=== PATIENT | female | born 1975 | race Caucasian/White ===

== ENCOUNTER 2017-01-20 13:10 | Observation (INO) | payer BC ==
[~2017-01-20] VITALS: Ht 167.6 cm; Wt 78.2 kg
[~2017-01-20 13:10] MED LIST: ASPIRIN PO; BENTYL20 MG PO; CARAFATE1 G PO; CELEBREX200 MG; CHOLESTEROL MED; DOXYCYLINE; FLEXERIL5 MG PO; IBUPROFEN; IBUPROFEN PO; IBUPROFEN200 M3 PO; INDERAL LA120 M2 PO; INDOCIN50 MG PO; IRON SUPPLEMEN325 MG PO; MOTRIN600 MG PO; NEXIUM40 M1 PO; NEXIUM40 MG PO; NORCO 5/325 TAB1 TAB PO; NORCO 5/3251 TAB PO; PERCOCET 5-3251 EACH PO; POTASSIUM CHLO10 MEQ PO; PRENATAL PLUS1 EAC1 PO; PRENATAL1 TAB PO; PREVACID; PRILOSEC20 MG PO; RANITIDINE HCL150 M1 PO; TAMOXIFEN; ULTRAM ER100 MG; VITAMIN B12-FO1 EAC1 PO; ZANTAC150 MG PO; [UNRECOGNIZED DRUG - REMARK]
[2017-01-20] MEDS ORDERED: OMEPRAZOLE20 M3 PO (13:23)
[2017-01-20 13:59] LABS: BASO % 2.2 % (0-2); BASO ABSOLUTE COUNT 0.1 tho/cmm (0.0-0.2); EOSINOPHIL ABSOLUTE COUNT 0.1 tho/cmm (0.0-0.7); HCT-HEMATOCRIT 42.1 % (34.0-49.0); HGB-HEMOGLOBIN 14.8 gm/dl (12.0-15.5); IMMATURE GRANULOCYTES ABSOLUTE 0.01 tho/cmm (0-0.03); IMMATURE GRANULOCYTES PERCENT 0.2 % (0-0.3); LYMPH % 27.4 % (20-45); LYMPH ABSOLUTE COUNT 1.1 tho/cmm (0.8-4.5); MCH (MEAN CORPUSCULAR HGB) 32.1 pg (28.0-32.0); MCHC MEAN CORPUSCULAR HGB CONC 35.2 % (32.0-36.0); MCV (MEAN CELL VOLUME) 91.3 fl (82.0-96.0); MEAN PLATELET VOLUME 9.2 cmc (9.4-12.4); MONO % 7.2 % (0-12); MONOCYTE ABSOLUTE COUNT 0.3 tho/cmm (0.0-1.2); NEUTROPHIL ABSOLUTE COUNT 2.5 tho/cmm (1.6-8.0); NEUTROPHIL-AUTOMATED 2.5 tho/cmm (1.6-8.0); PLATELET COUNT 194 tho/cmm (150-450); RED BLOOD COUNT 4.61 mil/cmm (4.00-5.20); RED CELL DISTRIBUTION WIDTH 13.4 % (12.4-16.4); WHITE BLOOD COUNT 4.1 tho/cmm (4.0-10.0)
[2017-01-20 14:18] LABS: ANION GAP 17 mmol/L (0-20); BLOOD UREA NITROGEN 9 mg/dl (6-24); CALCIUM 7.9 mg/dl (8.5-10.5); CARBON DIOXIDE-VENOUS 19 mmol/L (22-32); CHLORIDE 108 mmol/l (96-110); CREATININE 0.94 mg/dl (0.50-1.10); GLUCOSE 109 mg/dL (70-110); POTASSIUM 3.3 mmol/L (3.7-5.1); SODIUM 141 mmol/L (135-145); eGFR VALUE FOR BLACK 86 mL/Min
[2017-01-20] MEDS ORDERED: INDOMETHACIN (19:23)
[2017-01-21 05:45] LABS: ANION GAP 14 mmol/L (0-20); BLOOD UREA NITROGEN 9 mg/dl (6-24); CALCIUM 7.3 mg/dl (8.5-10.5); CARBON DIOXIDE-VENOUS 22 mmol/L (22-32); CHLORIDE 108 mmol/l (96-110); CHOLESTEROL 192 mg/dl (120-200); CREATININE 0.85 mg/dl (0.50-1.10); GLUCOSE 101 mg/dL (70-110); HDL CHOLESTEROL 55 mg/dl (40-60); LDL CHOLESTEROL 85 mg/dl (0-99); POTASSIUM 3.1 mmol/L (3.7-5.1); SODIUM 141 mmol/L (135-145); TRIGLYCERIDES 263 mg/dl (<149); VLDL 53 mg/dl (0-30); eGFR VALUE FOR BLACK >90 mL/Min
[2017-01-21] MEDS ORDERED: NORVASC5 M2 PO (10:28)
[2017-01-21] MEDS ORDERED: POTASSIUM CHLO10 ME2 PO (10:32)
== END 2017-01-21 11:10 ==
LOC: EDMED 13:10 → EMR2 16:24 → CAR1 16:24 → SHSB 19:15 → CAR1 19:15
PROVIDERS: Emergency Medicine; ADMIT Internal Medicine Cardiovascular Disease
DX: R07.9 Chest pain, unspecified (principal); I10 Essential (primary) hypertension; E87.6 Hypokalemia; E78.5 Hyperlipidemia, unspecified; I34.0 Nonrheumatic mitral (valve) insufficiency; F17.210 Nicotine dependence, cigarettes, uncomplicated; K21.9 Gastro-esophageal reflux disease without esophagitis; Z85.3 Personal history of malignant neoplasm of breast; Z92.21 Personal history of antineoplastic chemotherapy; Z92.3 Personal history of irradiation; Z98.890 Other specified postprocedural states
CPT/HCPCS: A9500; C8929; G0378; Q9967